=== PATIENT | male | born 1980 | race African-American/Black ===

== ENCOUNTER 2017-09-16 02:25 | Emergency (ER) | payer OTHER ==
[~2017-09-16] VITALS: Ht 185.4 cm; Wt 102.1 kg
[~2017-09-16 02:25] MED LIST: ALBUTEROL0.09 MG/A1 INH; GUAIFENESIN-COD10 ML PO; MEDROL4 M2 PO; MULTI-DAY VITA1 EACH PO; PREDNICOT20 MG PO; PREDNISONE50 M1 PO; PROAIR HFA0.09 MG/Ac INH; PROAIR HFA8.5 GM INH; PROMETH/CODEIN120 ML PO; TESSALON PERLE100 M1 PO; TESSALON PERLE100 MG PO; VENTOLIN HFA18 GM INH; VENTOLIN1 PUF INH; VITAMIN C500 M6 PO; ZITHROMAX Z-PA250 M1 PO; ZITHROMAX500 M2 PO
[2017-09-16 02:36] VITALS: BP 111/74
--- NOTE | 2017-09-16 03:19 | ED CARDIAC/CP/PALPITATIONS ---
History of Present Illness General Chief Complaint: General Adult Stated Complaint: "EVERYTIME I COUGH MY RIBS HURT" PER PT Source: patient, old records, Epic Exam Limitations: no limitations Vital Signs & Intake/Output Vital Signs & Intake/Output Vital Signs Date Time Temp Pulse Resp B/P B/P Pulse O2 O2 Flow FiO2 Mean Ox Delivery Rate 09/16 0317 97 09/16 0240 96 Room Air 09/16 0236 98.4 103 20 111/74 96 Room Air Allergies Coded Allergies: guaifenesin (UNKNOWN 03/15/16) iodine (UNKNOWN 03/15/16) shellfish derived (SWELLING 03/15/16) Reconcile Medications Albuterol Sulfate (Ventolin Hfa) 18 GM HFA.AER.AD 2 PUF INH Q4-6 PRN PRN SHORTNESS OF BREATH Core Measure Meds Pre-Hospital antibiotics Triage Note: PT REPORTS HAVING PNEUMONIA AND BRONCHITIS APPROX 2 WEEKS AGO. PT REPORTS THAT HE HAS A COUGH WITH RIB PAIN. PT REPORTS HAVING FEVER AND FEELING LIGHT HEADED. Triage Nurses Notes Reviewed? yes Onset: 2 days Duration: day(s):, constant, continues in ED Timing: recent history Quality/Severity: severe, sharp Location: L sided Radiation: no radiation Activities at Onset: coughing Prior Chest Pain/Card Workup: no prior chest pain Modifying Factors: Worsens With: breathing, coughing, movement, palpation. Nitro Today/Relief: no nitro taken today Aspirin Today: no aspirin today HPI: 2 weeks prior to admission patient was admitted to [facility] for asthma exacerbation secondary to viral syndrome. He has continued to have cough 2 days prior to admission developed severe left chest pain worse with movement during bending coughing deep breaths nonradiating. Denies fever chills nausea vomiting diarrhea abdominal pain shortness of breath headache dysuria rash bleeding. Past History Travel History Traveled to [place] past 21 day No Medical History Any Pertinent Medical History? 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 No Review of Systems Review of Systems Constitutional: Reports: no symptoms. EENTM: Reports: no symptoms. Respiratory: Reports: no symptoms. Cardiovascular: Reports: see HPI, chest pain. GI: Reports: no symptoms. Genitourinary: Reports: no symptoms. Musculoskeletal: Reports: no symptoms. Skin: Reports: no symptoms. Neurological/Psychological: Reports: no symptoms. Hematologic/Endocrine: Reports: no symptoms. Immunologic/Allergic: Reports: no symptoms. All Other Systems: Reviewed and Negative Physical Exam Physical Exam General Appearance: well developed/nourished, alert, awake, anxious, moderate distress Head: atraumatic, normal appearance Eyes: Bilateral: normal appearance, PERRL, EOMI. Ears, Nose, Throat: normal pharynx, normal ENT inspection, hearing grossly normal Neck: normal inspection, supple, full range of motion, no midline tenderness Respiratory: normal breath sounds, no respiratory distress, decreased breath sounds, left chest wall tenderness without crepitus step-off Cardiovascular: regular rate/rhythm, normal peripheral pulses, norml femoral pulses equa Peripheral Pulses: 4+ carotid (R), 4+ carotid (L) Gastrointestinal: normal bowel sounds, soft, non-tender, no organomegaly Back: normal inspection, normal range of motion, no vertebral tenderness Extremities: normal inspection, normal capillary refill, normal range of motion, no edema Neurologic/Psych: no motor/sensory deficits, awake, alert, oriented x 3, normal gait, normal mood/affect, 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 Skin: intact, normal color, warm/dry Lymphatic: no anterior cervical nicole Core Measures ACS in differential dx? No CVA/TIA Diagnosis No Sepsis Present: No Sepsis Focused Exam Completed? No Progress Differential Diagnosis: costochondritis, pneumonia, rib fracture Plan of Care: Orders Procedure Date/time Status XRY-RIBS UNILATERAL-LEFT 09/16 0304 Active Diagnostic Imaging: Viewed by Me: Radiology Read. Discussed w/RAD: Radiology Read. CXR Impression: no acute abnormality, Clear lungs. No focal rib abnormality. Initial ED EKG: none Departure Departure Time of Disposition: 4 Disposition: HOME OR SELF CARE Condition: Stable Clinical Impression Primary Impression: Rib pain on left side Secondary Impressions: Bronchitis Referrals: Patient Has No Primary Care Dr (PCP/Family) Departure Forms: Customer Survey General Discharge Information RELEASE- WORK Prescriptions: Current Visit Scripts Ibuprofen 1 TAB PO Q6PRN PRN pain #50 TAB with food Benzonatate (Tessalon Perle) 1 CAP PO TID PRN cough #21 CAP Dm Hb/PE/Acetaminophen/Chlorph (Cold Relief Head Congest Cplt) 1 TAB PO Q6P PRN cough congestion #30 TAB Hydrocodone/Acetaminophen (Pantego 5-325 Tablet) 1-2 TAB PO Q4-6 PRN PRN severe pain #15 TAB Critical Care Note Critical Care Note Critical Care Time: non-applicable
--- NOTE | 2017-09-16 03:59 | RADIOLOGY REPORT ---
EXAMINATION: XR RIBS, LEFT CLINICAL INFORMATION: Left-sided rib pain. Productive cough. COMPARISON: 12/28/2013 TECHNIQUE: PA view of the chest with 4 additional views of the left ribs. FINDINGS: Lungs are clear. No consolidation, pneumothorax, or pleural effusion. The cardiomediastinal silhouette and pulmonary vasculature are normal. Osseous structures are unremarkable. Ribs are intact. No fractures are identified. IMPRESSION: Clear lungs. No focal rib abnormality.
[2017-09-16] MEDS ORDERED: [UNRECOGNIZED DRUG - OTHER] PO (04:12)
[2017-09-16] MEDS ORDERED: IBUPROFEN600 M1 PO (04:12)
[2017-09-16] MEDS ORDERED: TESSALON PERLE100 M1 PO (04:12)
[2017-09-16] MEDS ORDERED: NORCO 5-325 TA1 EACH PO (04:12)
== END 2017-09-16 04:22 ==
LOC: ERH 02:25
DX: J40 Bronchitis, not specified as acute or chronic (principal); R07.81 Pleurodynia; Z87.891 Personal history of nicotine dependence
CPT/HCPCS: 1263; 1395; 71100-LT; 96372; J1885